=== PATIENT | male | born 1950 | race Caucasian/White ===

== ENCOUNTER 2018-12-16 09:29 | Outpatient (CLI) | payer MEDICARE ==
[2018-12-16 11:04] LABS: Estimated GFR-MDRD - POC Greater than 90
--- NOTE | 2018-12-16 15:53 | CT ---
CONTRAST ENHANCED CT IMAGES SOFT TISSUE NECK: HISTORY: Anterior neck swelling. FINDINGS: Contrast-enhanced CT images of the soft tissue neck obtained. Comparison is made to a previous CT of the cervical spine from 02/02/2017. CT images soft tissue neck demonstrate a hypodense mass just to the right of midline seen on axial im age #76. Three-dimensional measures measure 2.2 x 4.5 x 3.2 cm. This lesion appears to be hypodense . It is posterior to the strap muscles. It extends superiorly to the inferior margin of the vallecu la. This lesion may represent a thyroglossal duct cyst. The lesion is posterior to the strap muscle s and anterior to the thyroid cartilage and inferior to the hyoid bone. Cystic malignancy including squamous cell carcinoma, however, cannot be excluded originating from the vallecula. No significant evidence of lymphadenopathy is seen. There is an enlarged lymph node in the left superficial posteri or aspect of the parotid gland measuring 7 mm in minimum dimension. IMPRESSION: Midline intrahyoid hypodense lesion possibly representing a thyroglossal duct cyst. Other cystic yasmine plastic process, however, cannot be excluded. Coronary artery calcifications seen. Some prominent s uperficial left parotid lymph nodes seen. In addition, left carotid bulb vascular calcifications are also seen. POS: JEN
== END 2018-12-16 09:30 | disposition home or self-care (01) ==
LOC: SCSCT 09:29
PROVIDERS: ATTEND Specialist
DX: R22.1 Localized swelling, mass and lump, neck (principal); I25.10 Atherosclerotic heart disease of native coronary artery without angina pectoris; I65.22 Occlusion and stenosis of left carotid artery
CPT/HCPCS: 70492; 82565

== ENCOUNTER 2019-01-20 10:12 | Day surgery (SDC) | payer MEDICARE ==
[2019-01-19 11:26] VITALS: BMI 33.9
[2019-01-20 11:11] LABS: Hemoglobin 9.6 g/dL (14.0-18.0)
[2019-01-20 11:33] LABS: Anion Gap 14 mmol/L (10-20); BUN (Urea Nitrogen) 11 mg/dL (8.4-25.7); Calc. Creatinine Clearance 116 mL/min (70-130); Calcium 9.3 mg/dL (7.8-10.44); Carbon Dioxide 20 mmol/L (23-31); Chloride 105 mmol/L (98-107); Estimated GFR-MDRD 75; Glucose 325 mg/dL (80-115); Platelet Count 115 thou/uL (130-400); Potassium 4.4 mmol/L (3.5-5.1); Sodium 135 mmol/L (136-145)
[2019-01-20] MEDS ORDERED: Insulin Regular 300 UNITS/3 ML VIAL ONE (11:49)
[2019-01-20] MEDS ORDERED: Fentanyl 100 MCG/2 ML VIAL ONE ×2 (12:05→15:08)
[2019-01-20] MEDS ORDERED: Midazolam HCl 2 mg/2 ml Vial ONE (12:05)
[2019-01-20] MEDS ORDERED: Lidocaine 1% w/Epinephrine 1:100K 20 ML VIAL ONE (12:06)
[2019-01-20] MEDS ORDERED: Ondansetron PF 4 MG/2 ML Vial ONE (14:27)
[2019-01-20] MEDS ORDERED: Lidocaine 1% PF 5 ML VIAL ONE (14:27)
[2019-01-20] MEDS ORDERED: PROPOFOL 200 MG/20 ML VIAL ONE (14:27)
[2019-01-20] MEDS ORDERED: Glycopyrrolate 0.2 MG/ML 5 ML SYRINGE ONE (14:27)
[2019-01-20] MEDS ORDERED: Dexamethasone 20 MG/5 ML VIAL ONE (14:27)
[2019-01-20] MEDS ORDERED: PHENYLEPHRINE-NS 100 MCG/ML 10 ML SYRINGE ONE (14:27)
[2019-01-20] MEDS ORDERED: ePHEDrine 50 MG/ML VIAL ONE (14:27)
[2019-01-20] MEDS ORDERED: Rocuronium Bromide 10 MG/ML (10ML VIAL) ONE (14:27)
--- NOTE | 2019-01-20 14:27 | OP ---
DATE OF PROCEDURE: 01/20/2019 PREOPERATIVE DIAGNOSIS: Large thyroglossal duct cyst. POSTOPERATIVE DIAGNOSIS: Large thyroglossal duct cyst. PROCEDURES PERFORMED: 1. Excision of large thyroglossal duct cyst. 2. Direct laryngoscopy. 3. Lamont procedure. DESCRIPTION OF PROCEDURE: After consent was obtained, the patient was identified and brought to operating room and placed on operating table in supine position. General endotracheal anesthesia was obtained and the patient was positioned for surgery. The patient underwent systematic laryngeal examination and no foreign bodies were identified at the cecum or the tongue base area. We then proceeded with prepping and draping the patient and positioning for surgery. An incision was made over the cyst in the natural skin crease and carried down through the skin and subcutaneous tissues until the strap muscles. Ultimately, the cyst was encountered and dissected from the surrounding tissues. The hyoid bone was skeletonized and transected in the medial portion. This was then dissected through the midportion of the hyoid bone back to the base of tongue area. This was then suture ligated with a 3-0 silk suture. The marsupialized end of the cyst was then cauterized with the bipolar cautery. We then put Fibrillar Surgicel in the deep aspect of the wound, closed the wounds with the strap muscles being reapproximated followed by the platysma and subcutaneous tissues. We then did a subcuticular suture and put a sterile dressing, awakened the patient, taken to the recovery room in stable condition prior to discharge to home. Job ID: [id number]
[2019-01-20] MEDS ORDERED: Promethazine HCl 25 MG/ML VIAL IM/IV PRN (15:05)
[2019-01-20] MEDS ORDERED: Ondansetron HCl/PF 4 MG/2 ML Vial IVP PRN (15:05)
[2019-01-20] MEDS ORDERED: Hydrocodone-Acetamin 15 ML UDCUP ONE (16:00)
--- NOTE | 2019-01-21 07:05 | EKG ---
Test Reason : PREOP Blood Pressure : / mmHG Vent. Rate : 100 BPM Atrial Rate : 100 BPM P-R Int : 138 ms QRS Dur : 098 ms QT Int : 364 ms P-R-T Axes : 048 -27 071 degrees QTc Int : 469 ms Normal sinus rhythm Normal ECG When compared with ECG of 12-DEC-2016 18:04, No significant change was found Confirmed by NARDA ADAIR ([id number]) on 01/21/2019 7:05:38 AM Referred By: SERINA Confirmed By:NARDA ADAIR
== END 2019-01-20 16:42 | disposition home or self-care (01) ==
LOC: SDC 10:12
PROVIDERS: ATTEND Specialist
PROC: 0WB60ZX Excision of Neck, Open Approach, Diagnostic (ICD-10-PCS; principal; 2019-01-20)
DX: Q89.2 Congenital malformations of other endocrine glands (principal); E11.40 Type 2 diabetes mellitus with diabetic neuropathy, unspecified; I10 Essential (primary) hypertension; Z86.73 Personal history of transient ischemic attack (TIA), and cerebral infarction without residual deficits; Z21 Asymptomatic human immunodeficiency virus [HIV] infection status; Z79.1 Long term (current) use of non-steroidal anti-inflammatories (NSAID); Z79.4 Long term (current) use of insulin; Z79.82 Long term (current) use of aspirin; Z79.899 Other long term (current) drug therapy; Z88.8 Allergy status to other drugs, medicaments and biological substances
CPT/HCPCS: 36415; 36416; 80048; 85014; 85018; 85049; 88305; 93005; 93010; J1100; J1815; J2001; J2250; J2405; J2704; J3010; J3490

== ENCOUNTER 2019-03-22 08:58 | Day surgery (SDC) | payer MEDICARE ==
[2019-03-21 14:17] VITALS: BMI 34.2
[2019-03-22] MEDS ORDERED: GoLYTELY 4,000 ml Bottle PO SCH (09:45)
[2019-03-22] MEDS ORDERED: Lidocaine 1% PF 5 ML VIAL ONE (13:50)
[2019-03-22] MEDS ORDERED: PROPOFOL 200 MG/20 ML VIAL ONE (13:50)
[2019-03-22] MEDS ORDERED: PHENYLEPHRINE-NS 100 MCG/ML 10 ML SYRINGE ONE (13:50)
[2019-03-22] MEDS ORDERED: Lidocaine Viscous Sol 2% 15 ml UD Cup ONE (13:58)
--- NOTE | 2019-03-22 20:55 | OP ---
DATE OF PROCEDURE: 03/22/2019 PROCEDURE PERFORMED: Esophagogastroduodenoscopy with biopsy and colonoscopy with snare polypectomy. PREOPERATIVE DIAGNOSES: Iron deficiency anemia and cirrhosis of the liver. DESCRIPTION OF PROCEDURE: Informed consent was obtained from the patient. He was sedated with total intravenous anesthesia. The bite block was placed and the endoscope was advanced easily to the second portion of the duodenum and retroflexion was performed in the stomach. The esophagus was normal. The GE junction was normal. The stomach was normal including retroflex views. The pylorus and first and second portions of the duodenum were normal. Biopsies were obtained from the duodenum to rule out celiac disease. The patient was turned around. Rectal exam was performed and was normal. The colonoscope was advanced to the terminal ileum without difficulty. The mucosa of the terminal ileum was normal. The ileocecal valve and appendiceal orifice were clearly identified. There was mild diverticulosis in the left colon. A 5-mm polyp was removed from the descending colon by cold snare polypectomy. The remainder of the colonic mucosa was normal throughout. Retroflex views in the rectum were unremarkable unremarkable. IMPRESSION: 1. Normal esophagogastroduodenoscopy. There were no varices. Duodenal biopsies were taken to rule out celiac disease as a cause for iron deficiency anemia. 2. Mild diverticulosis of the left colon. 3. A 5-mm polyp was removed from the descending colon with cold snare polypectomy. 4. Otherwise normal colonoscopy to the terminal ileum. RECOMMENDATIONS: 1. Await histopathology. 2. Follow up in GI clinic. 3. Consider capsule endoscopy as an outpatient as a next step. Job ID: [id number]
== END 2019-03-22 15:45 | disposition home or self-care (01) ==
LOC: SDC 08:58
PROVIDERS: ATTEND Internal Medicine Gastroenterology
PROC: 0DB58ZX Excision of Esophagus, Via Natural or Artificial Opening Endoscopic, Diagnostic (ICD-10-PCS; principal; 2019-03-22)
PROC: 0DBE8ZZ Excision of Large Intestine, Via Natural or Artificial Opening Endoscopic (ICD-10-PCS; 2019-03-22)
DX: K63.5 Polyp of colon (principal); K57.30 Diverticulosis of large intestine without perforation or abscess without bleeding; D50.9 Iron deficiency anemia, unspecified; K74.60 Unspecified cirrhosis of liver; K72.90 Hepatic failure, unspecified without coma; I10 Essential (primary) hypertension; E11.9 Type 2 diabetes mellitus without complications; B20 Human immunodeficiency virus [HIV] disease; Z88.8 Allergy status to other drugs, medicaments and biological substances
CPT/HCPCS: 36416; 88305; J2001; J2704

== ENCOUNTER 2019-09-23 08:37 | Outpatient (CLI) | payer MEDICARE ==
--- NOTE | 2019-09-23 09:34 | ULT ---
EXAM: US Hepatic Doppler PROVIDED CLINICAL HISTORY: Cirrhosis. History of prior cholecystectomy. COMPARISON: None FINDINGS: The majority of pancreas is obscured by bowel gas; however, where visualized, pancreas has a grossly normal sonographic appearance. Abdominal aorta is also mostly obscured due to shadowing from bowel gas. The mid abdominal aorta is visualized and normal in caliber. There is increased echogenicity of the liver suggesting fatty infiltration. The liver is enlarged joselito suring 21.3 cm in craniocaudal dimensions. No obvious hepatic lesion is seen. The gallbladder is not visualized compatible with patient's history of prior cholecystectomy. The com mon duct is normal in caliber measuring 0.3 cm in diameter. The spleen is enlarged measuring 17 cm in length. Hepatic Doppler evaluation with spectral analysis and color flow evaluation: There is normal directional flow seen within the hepatic, portal, and splenic veins. Arterial wavefor ms are demonstrated within the splenic and hepatic arteries. IMPRESSION: 1. Hepatosplenomegaly. 2. Fatty infiltration of the liver which does limit evaluation of the hepatic parenchyma. However, no definite lesion is seen. 3. Postcholecystectomy changes. The common duct is normal in caliber. 4. Normal directional flow with thin the splenic, hepatic, and portal veins.
== END 2019-09-23 08:38 | disposition home or self-care (01) ==
LOC: SCSULT 08:37
PROVIDERS: ATTEND Internal Medicine Gastroenterology
DX: K74.60 Unspecified cirrhosis of liver (principal); D50.9 Iron deficiency anemia, unspecified; K72.90 Hepatic failure, unspecified without coma; E11.9 Type 2 diabetes mellitus without complications; B20 Human immunodeficiency virus [HIV] disease; R16.2 Hepatomegaly with splenomegaly, not elsewhere classified; K76.0 Fatty (change of) liver, not elsewhere classified; Z90.49 Acquired absence of other specified parts of digestive tract
CPT/HCPCS: 76705

== ENCOUNTER 2019-09-29 16:41 | Outpatient (CLI) | payer MEDICARE ==
--- NOTE | 2019-09-29 17:11 | RAD ---
ABDOMEN ONE VIEW: 09/29/19 HISTORY: Capsule endoscopy. FINDINGS: Large amount of stool throughout the colon. Phleboliths project over the pelvis. Metallic clips over the gallbladder fossa. No metallic foreign bodies are otherwise demonstrated. Degenerative changes of the hips and lumbar spine. IMPRESSION: Metallic camera not visible within the abdomen. Constipation. Status post cholecystectomy. POS: TPC
== END 2019-09-29 16:42 | disposition home or self-care (01) ==
LOC: SCSRAD 16:41
PROVIDERS: ATTEND Internal Medicine Gastroenterology
DX: D64.9 Anemia, unspecified (principal); K59.00 Constipation, unspecified; Z90.49 Acquired absence of other specified parts of digestive tract
CPT/HCPCS: 74018

== ENCOUNTER 2019-10-13 19:24 | Inpatient (IN) | payer MEDICARE ==
[2019-10-13 20:58] LABS: Troponin I 1.276 ng/mL (< 0.028)
[2019-10-13] MEDS ORDERED: Enoxaparin Sodium 60 MG/0.6 ML SYRINGE ONE (21:23)
[2019-10-13 22:08] LABS: INR-International Normal Ratio 1.1; PTT 29.8 SEC (22.9-36.1); Prothrombin Time 13.9 SEC (12.0-14.7)
--- NOTE | 2019-10-13 22:13 | PDOC.FPRHP ---
- History of Present Illness Chief Complaint: CP History of Present Illness: 69yo CM with h/o CAD, DMII, LOUIS, HIV who presents for CP and SOB. Pt states he has had about 3 days of UE and LE edema. Then noticed yesterday he had increased SOB having to use his walker to get around. Then noticed new onset substernal chest pain described as a pressure and radiation down his L arm. He has not been able to lie down all night. Could not move more than 5 feet without gasping for air. Associated diaphoresis and flushing. Does endorse some dizziness/lightheadedness. CP has since resolved and SOB and edema improved with lasix given in ED. Pt reports being chronically anemic. Has been seeing Dr. Real Welsh with GI. Reports doing upper and lower endoscopy and recently capsule endoscopy. has not found anything Etl Architect- Dr. Osbonr ED Course: Given ASA. Th lovenox. - Allergies/Adverse Reactions Allergies Allergy/AdvReac Type Severity Reaction Status Date / Time nitroglycerin Allergy has Verified 03/21/19 14:13 opposite affect - Home Medications Medication Instructions Recorded Confirmed Type Meloxicam [Mobic] 15 mg PO HS 06/03/16 10/14/19 History Omeprazole 20 mg PO DAILY 06/03/16 10/14/19 History hydrOXYzine Pamoate [Vistaril] 40 mg PO HS 06/03/16 10/14/19 History metFORMIN [Glucophage] 500 mg PO BID- 06/03/16 10/14/19 History Aspirin [Ecotrin] 81 mg PO DAILY 01/19/19 10/14/19 History Darunavir Ethanolate [Prezista] 1 tab PO DAILY 01/19/19 10/14/19 History Gabapentin 1 tab PO BID 01/19/19 10/14/19 History HumaLOG 50 unit SC BID 01/19/19 10/14/19 History Icosapent Ethyl [Vascepa] 2 tab PO DAILY 01/19/19 10/14/19 History Insulin Glargine [Lantus Vial] 70 units SC BID 01/19/19 10/14/19 History Lactulose 10 gm PO TID 01/19/19 10/14/19 History Raltegravir Potassium [Isentress] 400 mg PO BID 01/19/19 10/14/19 History Rifaximin [Xifaxan] 550 mg PO BID 01/19/19 03/21/19 History Ritonavir 100 mg PO DAILY 01/19/19 10/14/19 History Comments: 70 lantus morning and night Generlac 10g/15ml (20mg after meals) Vascepa 1 gm BID Gabapentin 600mg BID Omeprazole 20 mg once daily Amitriptyline 100mg in am 150 mg in pm Metformin 500mg BID Atorvastatin 40 mg daily Ritonavir 100 mg once a day Isentress 400 mg BID Escitalopram 20 mg a day ASA 81 mg daily Alprazolam .5mg daily Prezista 800 mg daily Hydroxyzine Pamoate 40 mg a day Meloxicam 15 mg at night Humalog Lantus - History PMHx: Chronic Anemia, Heart Cath (2018) had one vessel completely occluded (no stents), DMII on insulin, HTN, HLD, Cirrhosis 2/2 fatty liver, HIV PSHx: Heart Cath (2018), Prostatectomy for Prostate Cancer, Cholecystectomy, Tonsilectomy, Hemorrhoidectomy FHx: Heart Dz, Dad- Pancreatic, Prostate Cancer Social: social drinker. no tob or illicits. Lives alone in [place]. - Review of Systems General: reports: weight/appetite/sleep changes (unable to sleep last night), fatigue. denies: fever/chills, night sweats Eyes: reports: vision changes (reports blurry vision). denies: eye pain ENT: denies: nasal congestion, rhinorrhea Respiratory: reports: cough, shortness of breath, exercise intolerance. denies : congestion Cardiovascular: reports: chest pain, edema (in arms and legs a few days ago), paroxysmal nocturnal dyspnea, orthopnea. denies: palpitation Gastrointestinal: reports: constipation (chronic problem). denies: vomiting, diarrhea, abdominal pain, GI bleeding Genitourinary: reports: other (reports orange colored urine). denies: incontinence, dysuria, polyuria Skin: denies: rashes, lesions, jaundice Musculoskeletal: denies: pain, tenderness, stiffness, swelling Neurological: denies: numbness, weakness Psychological: denies: anxiety, depression - Vital signs BP: [170/80] HR: [102] RR: [18] Tmax: [98.1] Pox: [100]% on [3L] Wt: [124 kg] - Physical Exam Constitutional: NAD, awake, alert and oriented, well developed HEENT: normocephalic and atraumatic, EOMI, conjunctiva clear, grossly normal vision, grossly normal hearing, MMM, oropharynx clear Neck: supple, trachea midline, no LAD, no JVD Chest: no-tender to palpation Heart: RRR, normal S1/S2, no murmurs/rubs/gallops, pulses present, other (1+ pitting edema to BL LE to below shins.. Swelling of BL UE of hands.) Lungs: CTAB, no respiratory distress, no rales/rhonchi, no wheezing, other ( decreased airmovement throughout) Abdomen: soft, non-tender, bowel sounds present Musculoskeletal: normal structure, normal tone Neurological: no focal deficit Skin: no rash/lesions Psychiatric: normal mood and affect, good judgment and insight, intact recent and remote memory FMR H&P: Results - Labs Result Diagrams: 10/14/19 02:10 10/14/19 02:10 - Radiology Interpretation Chest x-ray Status: image reviewed by me, report reviewed by me (Findings favor fluid overload related to CHF. Correlate clnically.) FMR H&P: A/P - Problem List (1) NSTEMI (non-ST elevated myocardial infarction) Current Visit: Yes Status: Acute Code(s): I21.4 - NON-ST ELEVATION (NSTEMI) MYOCARDIAL INFARCTION (2) Acute respiratory failure with hypoxia Current Visit: Yes Status: Acute Code(s): J96.01 - ACUTE RESPIRATORY FAILURE WITH HYPOXIA (3) CAD (coronary artery disease) Current Visit: Yes Status: Chronic Code(s): I25.10 - ATHSCL HEART DISEASE OF PILOT STATION CORONARY ARTERY W/O ANG PCTRS (4) HIV (human immunodeficiency virus infection) Current Visit: No Status: Chronic (5) T2DM (type 2 diabetes mellitus) Current Visit: No Status: Chronic - Plan 69yo CM with h/o CAD, anemia, HTD, LOUIS, HIV with undetectable viral load who presents with CP found to have NSTEMI. #NSTEMI, possibly 2/2 demand ischemia - Trop 1.2 -> 1.8 in ED - EKG with slight ST depression in lateral V4-V6 leads - CP resolved in ED - h/o CAD with cath in early 2018 with complete occlusion of 1 artery and 40% stenosis in 2 others per pt family - Th lovenox at 1mg/kg BID - known to Dr. Osborn - Consult Cards in AM - NPO at midnight for likely cardiac intervention - Admit to Tele for continuous monitoring, trending trops #Symptomatic Anemia - Hb 7.5 on admission, lowest in records reviewed - Denies any acute blood loss - Known to Dr. Welsh, recent upper, lower, and capsule endoscopy - clear per pt - sxs of dizziness/lightheadedness and NSTEMI - Type and cross and transfuse 1u pRBC followed by 40mg IV lasix - Repeat HB in AM, will cont to monitor on tele - will obtain FOBT #Acute Hypoxic respiratory failure 2/2 NSTEMI and likely CHF exacerbation - O2 sat of 88 on presentation to ED, improved with diuresis with IV lasix - Satting well on RA now, will cont to monitor closely #CHF exacerbation - newonset possibly contributing to NSTEMI - Will order Echo in AM - Lasix 80mg IV in ED x2, will monitor with strict I's and O's and daily weights - Cards consult in AM - CXR with mild pulmonary congestion #DMII - Will place on SS insulin as pt using long-acting Lantus prn at home and currently NPO - Hyperglycemic protocol with KENN tello #HIV - undetectable viral load per pt - cont home medications - follows with Dr. Estrada PCP: Gaurav Code: modified DNR - chest compression only, no intubation - spoke with pt and sister at beside Diet: NPO at midnight IVF: SL VTE: Th lovenox Disposition/LOS: Admit to tele for NSTEMI, suspected acute CHF exacerbation, acute symptomatic anemia. Cards consult in AM. Trend trops. Diuresis and echo in AM. Anticipate hospitalization > 48 hours. FMR H&P: Upper Level - Pertinent history I was present with Dr. Sri Bill during the HPI. I scribed the above document. I made edits as needed. - Pertinent findings General: Pt sitting up in Bed. O2 sats stable on 3 L O2 Cardio: RRR, no murmurs or gallops. Resp: Bilateral crackles noted, No wheezes Abdomen: Mildly distended. No masses or hernias. NTTP Ext: +3 Pitting edema up to his knees in LE bilaterally - Plan Date/Time: 11/14/19 2210 I, Abdiel Palomares, PGY-3, have evaluated this patient and agree with findings/ plan as outlined by music industry intern resident. Pertinent changes/additions are listed here. See above for detailed plan. I made edits above as needed. At this time we will admit pt for NSTEMI. Pt started on therapeutic lovenox. No longer having chest pain. Will continue to trend trops. Will consult cardiology in the AM. Pt also appears to have signs of new onset CHF. Will get ECHO. Will start IV Lasix 40 mg. CXR shows signs of fluid overload. Likely cause of SOB. Pt also has acute hypoxic resp failure 2/2 fluid overload. Will continue to tx with lasix. Pt has history of chronic anemia. Pt hgb 7.5 this is lower from prior values. Baseline around 8-9. Possible Blood loss leading to some demand ischemia above. Will get FOBT. Will trend CBC. Will transfuse 1u PRBC at this time. Pt has been seeing GI- Dr. Welsh and is currently being worked up for this. Pt has HIV. Will continue home meds. Pt has insulin dependent DMII. Pt reports home lantus dose 70u. Pt glucose stable at this time. Will hold lantus for now and trend glucose as he is NPO. Placed on Mod SSI. See above for detailed plan. Addendum - Attending - Attending Attestation Date/Time: 10/13/19 9731 I personally evaluated the patient and discussed the management with Dr. Bill/ Marielle I agree with the History, Examination, Assessment and Plan documented above with any addition or exceptions noted below. 69 yo WM PMH HTN, known CAD with 40-50% occlusion per family, DM2, and HIV ( well controlled) presents with 1-2 wk hx of worsening SOB that acutely worsened this morning. Reports difficulty lying flat. Seen at [facility] ER. Found to have NSTEMI and HF exacerbation. Unknown if has hx of HF at this time. Exam unremarkable. Resting comfortably in room. patient states supplemental oxygen has helped symptoms. Trop 0.5->1.2. BNP 300. CXR fluid overload. initial EKG unremarkable with borderline QTc prolongation. Repeat EKG unchanged. States only has CP with deep inspiration. Will admit to inpatient telemetry for NSTEMI type 1 and likely new onset heart failure. s/p lasix and therapeutic lovenox. Type, crossmatch, and transfuse 1 unit for goal hemoglobin of 9. Will consult cardiology in the morning for likely cath. PRN nitro for CP. Repeat EKG if chest pain worsens. See music industry intern note for chronic problems.
[2019-10-13] MEDS ORDERED: Ondansetron ODT 4 MG TAB SL PRN (23:12)
[2019-10-13] MEDS ORDERED: Ondansetron PF 4 MG/2 ML Vial IVP PRN (23:12)
[2019-10-13] MEDS ORDERED: Acetaminophen 325 MG TAB PO PRN (23:12)
[2019-10-14] MEDS ORDERED: Ondansetron ODT 4 MG TAB PO PRN (00:23)
[2019-10-14] MEDS ORDERED: Acetaminophen 325 MG TAB PO PRN (00:23)
[2019-10-14] MEDS ORDERED: Dextrose 5% in Water 1,000 ML IV PRN (00:23)
[2019-10-14] MEDS ORDERED: Dextrose 50% Abboject 50 ML SYRINGE SLOW IVP PRN (00:23)
[2019-10-14] MEDS ORDERED: Ondansetron PF 4 MG/2 ML Vial IVP PRN (00:23)
[2019-10-14] MEDS ORDERED: Calcium Carbonate 500 MG ChewTAB PO PRN (00:23)
[2019-10-14] MEDS ORDERED: HumaLOG 300 UNITS/3 ML VIAL SC PRN (00:23)
[2019-10-14] MEDS ORDERED: Furosemide 40 MG/4 ML VIAL SLOW IVP SCH (00:30)
[2019-10-14 00:49] LABS: Troponin I 1.845 ng/mL (< 0.028)
[2019-10-14 02:42] LABS: Band 1 % (5-11); Eosinophils 1 % (0-10); Hemoglobin 7.5 g/dL (14.0-18.0); Lymphocytes 18 % (21-51); MDiff Complete? YES; Mean Corpuscular Hemoglobin 19.2 pg (27.0-31.0); Mean Corpuscular Volume 63.9 fL (78.0-98.0); Mean Platelet Volume 5.5 fL (7.4-10.4); Monocytes 2 % (0-10); Neutrophil 78 % (42-75); Platelet Count 117 thou/uL (130-400); Platelet Morphology Comment Appears Decreased; RBC Distribution Width 20.1 % (11.5-14.5); White Blood Cell (WBC) Count 7.9 thou/uL (4.8-10.8)
[2019-10-14 02:48] LABS: ALT (SGPT) 28 U/L (8-55); AST (SGOT) 31 U/L (5-34); Albumin 3.9 g/dL (3.4-4.8); Alkaline Phosphatase 111 U/L (40-110); Anion Gap 12 mmol/L (10-20); BUN (Urea Nitrogen) 29 mg/dL (8.4-25.7); Bilirubin, Total 0.5 mg/dL (0.2-1.2); Calc. Creatinine Clearance 101 mL/min (70-130); Calcium 8.8 mg/dL (7.8-10.44); Carbon Dioxide 26 mmol/L (23-31); Chloride 104 mmol/L (98-107); Estimated GFR-MDRD 59; Globulin 3.4 g/dL (2.4-3.5); Glucose 134 mg/dL (80-115); Potassium 3.6 mmol/L (3.5-5.1); Protein, Total 7.3 g/dL (5.8-8.1); Sodium 138 mmol/L (136-145)
--- NOTE | 2019-10-14 05:14 | PDOC.FM ---
- Subjective Subjective: Pt reports that his breathing is much improved. He denies chest pain currently. In addition, he denies nausea, vomiting, diaphoresis, or SOB. He states the O2 has greatly improved his breathing. - Objective MAR Reviewed: Yes Vital Signs & Weight: Vital Signs (12 hours) Temp Pulse Pulse Resp BP BP Pulse Ox 10/14/19 03:17 98.8 F 92 24 H 135/68 95 10/13/19 23:00 98.9 F 80 24 H 170/80 H 97 Weight Weight 124.194 kg I&O: 10/12/19 10/13/19 10/14/19 06:59 06:59 06:59 Intake Total 0 Balance 0 Result Diagrams: 10/14/19 09:16 10/14/19 09:16 Phys Exam - Physical Examination Constitutional: NAD dry mm Neck: no JVD Respiratory: no wheezing Crackles in bilateral bases and mid lung Cardiovascular: RRR, no significant murmur Gastrointestinal: soft, non-tender, no distention, positive bowel sounds Musculoskeletal: pulses present, edema present (1+ pitting edema to knee bilaterally) Neurological: moves all 4 limbs Psychiatric: A&O x 3 Skin: cap refill <2 seconds Dx/Plan (1) LUPILLO (acute kidney injury) Code(s): N17.9 - ACUTE KIDNEY FAILURE, UNSPECIFIED Status: Acute (2) HIV (human immunodeficiency virus infection) Status: Chronic (3) HTN (hypertension) Code(s): I10 - ESSENTIAL (PRIMARY) HYPERTENSION Status: Acute (4) T2DM (type 2 diabetes mellitus) Status: Chronic - Plan Plan: This is a 69 yo male with a pmh of Chronic anemia, IDDM2, HTN, CAD, HLD, Cirrhosis 2/2 fatty liver, HIV Acute hypoxic respiratory failure likely 2/2 new CHF exacerbation -S/P lasix 80mg in outside hospital -BNP 367 -Undergoing diuresis with lasix. Strict I&Os and daily weights -Plan for AM echo -Plan for cardiology consult given apparent new onset CHF -Pt will likely need beta carissa and ACEi before discharge NSTEMI type 1 -May be contributing to the new CHF -S/P therapeutic lovenox and aspirin -ST depressions in lateral leads -Plan for cardiology consult in the AM -Troponins trending up:0.502, 1.276, 1.845 -Will continue monitoring for pain and repeat EKG with any changes -Dr. Osborn is pt's telecom specialist LUPILLO on CKD 2 likely 2/2 new CHF exacerbation -Diuresis and follow with BMPs Symptomatic anemia -Transfusion threshold is <8.0 due to cardiac condition -S/P 1u PRBCs, will reassess after -Will monitor respirations closely for fluid overload, pt given 40mg lasix before transfusion Chronic anemia -Pt is undergoing workup with Dr. Welsh. No source at this point -MCV would suggest iron deficiency, however RDW is elevated suggesting multifocal anemia or large reticulocyte population IDDM2 -Continue home HTN -Monitor BP, no meds on home list HIV -Pt reports undetectable viral load, pending viral load and CD4 count -Continue home raltegravir and ritonavir CAD -Continue aspirin, starting atorvastatin Cirrhosis 2/2 fatty liver -Check on hep A and B vaccine Addendum - Attending - Attending Attestation Date/Time: 10/14/19 1043 I personally evaluated the patient and discussed the management with Dr. Babin. I agree with the History, Examination, Assessment and Plan documented above with any addition or exceptions noted below.
[2019-10-14 05:54] LABS: Critical Call Chem Troponin I RESULT DECREASING
[2019-10-14 06:11] LABS: Hemoglobin A1c 7.2 % (4.0-6.0)
[2019-10-14] MEDS ORDERED: Non-Formulary Item 1 EACH (Omeprazole [Omeprazole] 20 MG) PO SCH (09:00)
[2019-10-14] MEDS ORDERED: DARUNAVIR ETHANOLATE PO SCH (09:00)
[2019-10-14] MEDS ORDERED: Aspirin Chewable 81 MG TAB PO SCH (09:00)
[2019-10-14] MEDS ORDERED: Enoxaparin Sodium 40 MG/0.4 ML SYRINGE SC SCH (09:00)
[2019-10-14] MEDS ORDERED: Prevnar 13-Val Conj/PF 0.5 ML SYRINGE IM ONE (09:00)
[2019-10-14 09:31] LABS: Platelet Count 96 thou/uL (130-400)
[2019-10-14] MEDS ORDERED: Spironolactone 25 MG TAB PO SCH ×2 (10:01→10:15)
[2019-10-14] MEDS: Gabapentin 300 MG CAP PO SCH ×3 (11:37→20:51)
[2019-10-14] MEDS: Aspirin 81 mg Enteric Coated Tablet PO SCH (11:37)
[2019-10-14] MEDS: Escitalopram Oxalate 20 mg Tablet PO SCH (11:37)
[2019-10-14] MEDS: metFORMIN 500 MG TAB PO SCH ×2 (11:38→17:39)
[2019-10-14] MEDS: hydrOXYzine Pamoate 25 mg Capsule PO SCH (11:39)
[2019-10-14] MEDS: Raltegravir Potassium 400 MG TAB PO SCH ×2 (11:40→20:52)
--- NOTE | 2019-10-14 12:20 | CON ---
DATE OF CONSULTATION: HISTORY OF PRESENT ILLNESS: The patient is a very pleasant 69-year-old gentleman with a history of coronary artery disease, who presented with dyspnea and chest discomfort. The patient has a previous history of coronary artery disease. In December 2018, the patient underwent a left heart catheterization. He was found to have normal left ventricular systolic function, estimated ejection fraction of 55% to 60%. The LAD had a 50% mid stenosis. There was a distal 40% stenosis in the LAD. The left circumflex artery had a 40% ostial stenosis. Right coronary artery had 100% proximal occlusion. The patient has subsequently been on medical therapy. He has also had a great difficulty with GI hemorrhage. He has been undergoing an evaluation. The patient was in his usual state of health when he noted having increasing edema. He subsequently became progressively short of breath. He reported having chest discomfort associated with his breathing. The patient denies having any present chest discomfort. PAST MEDICAL HISTORY: 1. Coronary artery disease. 2. Diabetes mellitus. 3. HIV positive. 4. Prostate carcinoma. 5. Hypertension. 6. Dyslipidemia. 7. Obesity. PAST SURGICAL HISTORY: 1. Cholecystectomy. 2. Prostatectomy. SOCIAL HISTORY: Former smoker. ALLERGIES: NO KNOWN DRUG ALLERGIES. MEDICATIONS: See nursing list. FAMILY HISTORY: Positive family history of coronary artery disease. REVIEW OF SYSTEMS: Ten-point system otherwise unremarkable. PHYSICAL EXAMINATION: GENERAL: This is an obese gentleman, in no acute distress. VITAL SIGNS: Blood pressure of 143/75. NECK: No jugular venous distention. LUNGS: Crackles in both bases. HEART: Regular rate and rhythm. Normal S1 and S2. ABDOMEN: Moderately distended. EXTREMITIES: 2+ bilateral edema. VASCULAR: Radial pulses 2+. LABORATORY DATA: White blood cell count was 7.9, hemoglobin 7.5, hematocrit 24.9, and his platelets are 117. Sodium 138, potassium 3.6, chloride 104, bicarb 26, BUN 29, creatinine 1.2. Troponin 1.1. His EKG reveals normal sinus rhythm with ST abnormality suggestive of lateral ischemia. IMPRESSION AND PLAN: 1. Non Q-wave myocardial infarction. 2. 3-vessel coronary artery disease. 3. History of GI hemorrhage. 4. Severe anemia. 5. Congestive heart failure probably secondary to diastolic dysfunction. 6. Diabetes mellitus. 7. Obesity. This patient presents with a small non-Q-wave myocardial infarction, probably due to demand ischemia and congestive heart failure. From a cardiac standpoint , we would treat the patient medically. We would recommend starting the patient on diuretics. We will follow this patient with you through his hospitalization. Job ID: [id number] MTDD
[2019-10-14 14:22] VITALS: BMI 37.9
[2019-10-14] MEDS: Furosemide 40 MG/4 ML VIAL SLOW IVP SCH (14:58)
[2019-10-15 05:12] LABS: Band 1 % (5-11); Eosinophils 1 % (0-10); Hemoglobin 7.9 g/dL (14.0-18.0); Hypochromia SLIGHT = 6-15 cells (100X) (0-5/hpf); Lymphocytes 12 % (21-51); MDiff Complete? YES; Mean Corpuscular HGB CONC 30.2 g/dL (32.0-36.0); Mean Corpuscular Hemoglobin 19.9 pg (27.0-31.0); Mean Platelet Volume 5.5 fL (7.4-10.4); Monocytes 2 % (0-10); Neutrophil 84 % (42-75); Platelet Count 107 thou/uL (130-400); Platelet Morphology Comment Appears Decreased; Polychromasia SLIGHT = 2-3 cells (100X) (0-2/hpf); RBC Distribution Width 21.4 % (11.5-14.5); Red Blood Cell (RBC) Count 3.95 mill/uL (4.70-6.10); White Blood Cell (WBC) Count 5.6 thou/uL (4.8-10.8)
[2019-10-15 05:18] LABS: ALT (SGPT) 28 U/L (8-55); AST (SGOT) 29 U/L (5-34); Albumin 3.7 g/dL (3.4-4.8); Alkaline Phosphatase 107 U/L (40-110); Anion Gap 9 mmol/L (10-20); BUN (Urea Nitrogen) 21 mg/dL (8.4-25.7); Bilirubin, Total 0.6 mg/dL (0.2-1.2); Calc. Creatinine Clearance 121 mL/min (70-130); Calcium 8.7 mg/dL (7.8-10.44); Carbon Dioxide 27 mmol/L (23-31); Chloride 104 mmol/L (98-107); Estimated GFR-MDRD 73; Globulin 3.4 g/dL (2.4-3.5); Glucose 124 mg/dL (80-115); Potassium 3.9 mmol/L (3.5-5.1); Protein, Total 7.1 g/dL (5.8-8.1); Sodium 136 mmol/L (136-145)
[2019-10-15] MEDS: Furosemide 40 MG/4 ML VIAL SLOW IVP SCH ×2 (05:25→14:10)
--- NOTE | 2019-10-15 06:08 | PDOC.FM ---
- Subjective Subjective: Pt's breathing is improving. He denies chest pain this morning. He states the swelling in his hands is better. He has no complaints - Objective MAR Reviewed: Yes Vital Signs & Weight: Vital Signs (12 hours) Temp Pulse Resp BP Pulse Ox 10/15/19 04:00 98.2 F 93 23 H 126/61 92 L 10/14/19 19:47 99.2 F 98 20 133/72 98 Weight Admit Weight 124.194 kg Weight 120.021 kg I&O: 10/13/19 10/14/19 10/15/19 06:59 06:59 06:59 Intake Total 990 960 Output Total 3800 2550 Balance -2810 -1590 Result Diagrams: 10/15/19 04:33 10/15/19 04:33 Phys Exam - Physical Examination Constitutional: NAD HEENT: moist MMs Neck: no JVD Respiratory: no wheezing Crackles in bases bilaterally, improved air movement Cardiovascular: RRR 2/6 systolic murmur Gastrointestinal: soft, non-tender, no distention, positive bowel sounds Musculoskeletal: pulses present, edema present (1+ pitting to mid larsen) Neurological: moves all 4 limbs Psychiatric: A&O x 3 Skin: cap refill <2 seconds Dx/Plan (1) LUPILLO (acute kidney injury) Code(s): N17.9 - ACUTE KIDNEY FAILURE, UNSPECIFIED Status: Acute (2) HIV (human immunodeficiency virus infection) Status: Chronic (3) HTN (hypertension) Code(s): I10 - ESSENTIAL (PRIMARY) HYPERTENSION Status: Acute (4) T2DM (type 2 diabetes mellitus) Status: Chronic - Plan Plan: This is a 69 yo male with a pmh of Chronic anemia, IDDM2, HTN, CAD, HLD, Cirrhosis 2/2 fatty liver, HIV Acute hypoxic respiratory failure likely 2/2 new HFpEF exacerbation -S/P lasix 80mg in outside hospital -BNP 367 -Undergoing diuresis with lasix. Strict I&Os and daily weights, 1.5 L down overnight, 4.4 L down for hospital stay -Dr. Osborn consulted, will appreciate recommendations -Pt will likely need beta carissa and ACEi before discharge -Echo shows EF of 50-55%, LVH, and diastolic dysfunction NSTEMI type 1 -May be contributing to the new CHF -S/P therapeutic lovenox and aspirin -ST depressions in lateral leads -Plan for cardiology consult in the AM -Troponins trending up:0.502, 1.276, 1.845 -Will continue monitoring for pain and repeat EKG with any changes -Dr. Osborn recommends medical management and treatment of underlying CHF exacerbation LUPILLO on CKD 2 likely 2/2 new CHF exacerbation -Diuresis and follow with BMPs -Improving while on lasix Symptomatic anemia -Transfusion threshold is <8.0 due to cardiac condition -S/P 1u PRBCs, will reassess after -Will monitor respirations closely for fluid overload, pt given 40mg lasix before transfusion -Hgb 7.9 this AM, pt will likely Hemoconcentrate with diuresis. Will follow and transfuse if this drops more or pt becomes symptomatic Chronic anemia -Pt is undergoing workup with Dr. Welsh. No source at this point -MCV would suggest iron deficiency, however RDW is elevated suggesting multifocal anemia or large reticulocyte population IDDM2 -Continue home HTN -Monitor BP, no meds on home list HIV -Pt reports undetectable viral load, pending viral load and CD4 count -Continue home raltegravir and ritonavir CAD -Continue aspirin, starting atorvastatin Cirrhosis 2/2 fatty liver -Check on hep A and B vaccine
[2019-10-15] MEDS: Enoxaparin Sodium 40 MG/0.4 ML SYRINGE SC SCH (09:40)
[2019-10-15] MEDS: metFORMIN 500 MG TAB PO SCH ×2 (09:43→16:41)
[2019-10-15] MEDS: Spironolactone 25 MG TAB PO SCH (09:43)
[2019-10-15] MEDS: Atorvastatin Calcium 40 MG TAB PO SCH (09:44)
[2019-10-15] MEDS: ALPRAZolam 0.5 MG TAB PO SCH (09:44)
[2019-10-15] MEDS: Amitriptyline HCl 100 MG TAB PO SCH (09:44)
[2019-10-15] MEDS: Aspirin 81 mg Enteric Coated Tablet PO SCH (09:44)
[2019-10-15] MEDS: Escitalopram Oxalate 20 mg Tablet PO SCH ×2 (09:45)
[2019-10-15] MEDS: hydrOXYzine Pamoate 25 mg Capsule PO SCH (09:46)
[2019-10-15] MEDS: Gabapentin 300 MG CAP PO SCH ×3 (09:46→22:26)
[2019-10-15] MEDS: Raltegravir Potassium 400 MG TAB PO SCH ×2 (10:18→22:26)
[2019-10-15] MEDS: HumaLOG 300 UNITS/3 ML VIAL SC PRN (11:50)
--- NOTE | 2019-10-15 16:20 | PRG ---
DATE OF SERVICE: 10/15/2019 Please see the note from Dr. Babin, for which I agree. This gentleman is hospital day 2, CHF exacerbation and NSTEMI. Troponin definitely bumped up fairly high. Appreciate Cardiology's Involvement. Already had 4 L diuresed off him. Complicated history including diabetes, chronic kidney issues, HIV, hypertension, etc. Things seem fairly stable. He feels a lot better now that we diuresed him. I will continue gentle diuresis watching kidney function on this and keeping him on the monitor looking for arrhythmias after the myocardial infarct. We will continue sliding scale insulin. He has chronic anemia. I want to watch that closely. It sounds like GI has worked him up and really not found a definitive etiology. Job ID: [id number]
[2019-10-16 04:51] LABS: ALT (SGPT) 30 U/L (8-55); AST (SGOT) 29 U/L (5-34); Albumin 3.9 g/dL (3.4-4.8); Alkaline Phosphatase 115 U/L (40-110); Anion Gap 10 mmol/L (10-20); BUN (Urea Nitrogen) 22 mg/dL (8.4-25.7); Bilirubin, Total 0.5 mg/dL (0.2-1.2); Calc. Creatinine Clearance 104 mL/min (70-130); Calcium 9.1 mg/dL (7.8-10.44); Carbon Dioxide 27 mmol/L (23-31); Chloride 104 mmol/L (98-107); Estimated GFR-MDRD 63; Globulin 3.4 g/dL (2.4-3.5); Glucose 151 mg/dL (80-115); Potassium 3.8 mmol/L (3.5-5.1); Protein, Total 7.3 g/dL (5.8-8.1); Sodium 137 mmol/L (136-145)
--- NOTE | 2019-10-16 06:08 | PDOC.FM ---
- Subjective Subjective: Pt states his breathing is improving. He denies chest pain. No other complaints this morning. - Objective MAR Reviewed: Yes Vital Signs & Weight: Vital Signs (12 hours) Temp Pulse Resp Pulse Ox 10/16/19 04:00 98.6 F 89 20 89 L Weight Admit Weight 124.194 kg Weight 120.021 kg I&O: 10/14/19 10/15/19 10/16/19 06:59 06:59 06:59 Intake Total 990 960 900 Output Total 3800 2550 2000 Balance -2810 -1590 -1100 Result Diagrams: 10/16/19 04:12 10/16/19 04:12 Phys Exam - Physical Examination Constitutional: NAD HEENT: moist MMs Neck: no JVD Respiratory: no wheezing very mild basilar crackls Cardiovascular: RRR, no significant murmur Gastrointestinal: soft, non-tender, no distention, positive bowel sounds Musculoskeletal: pulses present, edema present (trace) Neurological: moves all 4 limbs Psychiatric: A&O x 3 Skin: cap refill <2 seconds Dx/Plan (1) LUPILLO (acute kidney injury) Code(s): N17.9 - ACUTE KIDNEY FAILURE, UNSPECIFIED Status: Acute (2) HIV (human immunodeficiency virus infection) Status: Chronic (3) HTN (hypertension) Code(s): I10 - ESSENTIAL (PRIMARY) HYPERTENSION Status: Acute (4) T2DM (type 2 diabetes mellitus) Status: Chronic - Plan Plan: This is a 69 yo male with a pmh of Chronic anemia, IDDM2, HTN, CAD, HLD, Cirrhosis 2/2 fatty liver, HIV Acute hypoxic respiratory failure likely 2/2 new HFpEF exacerbation -BNP 367 -Undergoing diuresis. Strict I&Os and daily weights, 1.5 L down overnight, 4.4 L down for hospital stay -Switching to PO lasix -Dr. Osborn consulted, will appreciate recommendations -Pt will likely need beta carissa and ACEi before discharge -Echo shows EF of 50-55%, LVH, and diastolic dysfunction NSTEMI type 1 -May be contributing to the new CHF -Troponins trending up:0.502, 1.276, 1.845 -Will continue monitoring for pain and repeat EKG with any changes -Dr. Osborn recommends medical management and treatment of underlying CHF exacerbation LUPILLO on CKD 2 likely 2/2 new CHF exacerbation -Diuresis and follow with BMPs -Improving while on lasix, slight bump in Cr today, switching to PO lasix Symptomatic anemia -Transfusion threshold is <8.0 due to cardiac condition -S/P 1u PRBCs, will reassess after -Will monitor respirations closely for fluid overload, pt given 40mg lasix before transfusion -Hgb 7.9 this AM, pt will likely Hemoconcentrate with diuresis. Will follow and transfuse if this drops more or pt becomes symptomatic Chronic anemia -Pt is undergoing workup with Dr. Welsh. No source at this point -MCV would suggest iron deficiency, however RDW is elevated suggesting multifocal anemia or large reticulocyte population IDDM2 -Continue home HTN -Monitor BP, no meds on home list HIV -Pt reports undetectable viral load, pending viral load and CD4 count -Continue home raltegravir and ritonavir CAD -Continue aspirin, starting atorvastatin Cirrhosis 2/2 fatty liver -Check on hep A and B vaccine
[2019-10-16 06:42] LABS: Band 1 % (5-11); Eosinophils 3 % (0-10); Hemoglobin 8.2 g/dL (14.0-18.0); Hypochromia SLIGHT = 6-15 cells (100X) (0-5/hpf); Lymphocytes 27 % (21-51); MDiff Complete? YES; Mean Corpuscular HGB CONC 30.3 g/dL (32.0-36.0); Mean Corpuscular Hemoglobin 19.9 pg (27.0-31.0); Mean Corpuscular Volume 65.8 fL (78.0-98.0); Mean Platelet Volume 5.2 fL (7.4-10.4); Microcytosis MODERATE=15-30 cells (100X) (0-5/hpf); Monocytes 10 % (0-10); Neutrophil 59 % (42-75); Platelet Count 103 thou/uL (130-400); Platelet Morphology Comment Appears Decreased; RBC Distribution Width 21.3 % (11.5-14.5); Red Blood Cell (RBC) Count 4.13 mill/uL (4.70-6.10); White Blood Cell (WBC) Count 6.1 thou/uL (4.8-10.8)
[2019-10-16] MEDS ORDERED: Furosemide 20 MG TAB PO SCH ×3 (07:00→14:00)
[2019-10-16] MEDS: Aspirin 81 mg Enteric Coated Tablet PO SCH (09:14)
[2019-10-16] MEDS: Escitalopram Oxalate 20 mg Tablet PO SCH ×2 (09:14→09:16)
[2019-10-16] MEDS: Atorvastatin Calcium 40 MG TAB PO SCH (09:14)
[2019-10-16] MEDS: Amitriptyline HCl 100 MG TAB PO SCH (09:14)
[2019-10-16] MEDS: Raltegravir Potassium 400 MG TAB PO SCH (09:14)
[2019-10-16] MEDS: hydrOXYzine Pamoate 25 mg Capsule PO SCH (09:15)
[2019-10-16] MEDS: Enoxaparin Sodium 40 MG/0.4 ML SYRINGE SC SCH (09:15)
[2019-10-16] MEDS: metFORMIN 500 MG TAB PO SCH (09:15)
[2019-10-16] MEDS: Spironolactone 25 MG TAB PO SCH (09:15)
[2019-10-16] MEDS: Gabapentin 300 MG CAP PO SCH (09:15)
[2019-10-16] MEDS: ALPRAZolam 0.5 MG TAB PO SCH (09:16)
[2019-10-16] MEDS ORDERED: Furosemide 40 MG TAB PO SCH (09:30)
[2019-10-16 10:08] VITALS: TEMP 97.8
[2019-10-16] MEDS: HumaLOG 300 UNITS/3 ML VIAL SC PRN (11:12)
--- NOTE | 2019-10-16 12:12 | PRG ---
DATE OF SERVICE: 10/16/2019 The patient was seen, evaluated, discussed, and examined with the residents by bedside. Please see Dr. Babin's note for which I agree. Really, after this heart attack and heart failure exacerbation, the patient is doing a lot better. No longer fluid overloaded. No chest pain or shortness of breath. Energy level is good and feels fine otherwise. On exam, chest is clear. Cardiovascular, regular rate and rhythm. Extremities show only trace edema and should be ready to go home today as Cardiology cleared him. He will continue same medicines that he is currently on and discussed daily weights and call if his weight increases. Follow up with Cardiology in the next week or so. He will notify us if there are any problems sooner. Job ID: [id number]
[2019-10-16 13:50] VITALS: BP 138/78
[2019-10-16 19:08] LABS: HIV-1 Quantitative, RNA PCR <20 copies/mL (.)
[2019-10-17] MEDS ORDERED: Furosemide 40 MG TAB PO SCH (09:00)
[2019-10-17 15:10] LABS: %CD4 (Helper/Inducer) 18.1 % (30.8-58.5); Absolute CD4 235 /uL (359-1519); Lymphocytes/Gated Cell Count 1.3 x10E3/uL (0.7-3.1); Total Lymphocyte 18 % (Not Estab.); WBC Total Count 6.8 x10E3/uL (3.4-10.8)
== END 2019-10-16 14:53 | disposition home or self-care (01) | DRG 280 ==
LOC: ERS 19:24 → 2NO 23:48
PROVIDERS: ADMIT Family Medicine; ATTEND Family Medicine
DX: I21.4 Non-ST elevation (NSTEMI) myocardial infarction (principal); J96.01 Acute respiratory failure with hypoxia; I50.31 Acute diastolic (congestive) heart failure; I13.0 Hypertensive heart and chronic kidney disease with heart failure and stage 1 through stage 4 chronic kidney disease, or unspecified chronic kidney disease; N17.9 Acute kidney failure, unspecified; I25.10 Atherosclerotic heart disease of native coronary artery without angina pectoris; K74.60 Unspecified cirrhosis of liver; E11.22 Type 2 diabetes mellitus with diabetic chronic kidney disease; N18.2 Chronic kidney disease, stage 2 (mild); Z66 Do not resuscitate; K75.81 Nonalcoholic steatohepatitis (NASH); Z21 Asymptomatic human immunodeficiency virus [HIV] infection status; E78.5 Hyperlipidemia, unspecified; E66.9 Obesity, unspecified; Z90.79 Acquired absence of other genital organ(s); Z90.49 Acquired absence of other specified parts of digestive tract; D64.9 Anemia, unspecified; Z79.4 Long term (current) use of insulin
CPT/HCPCS: 36415; 36416; 36430; 80053; 83036; 83880; 85007; 85027; 85048; 85610; 85730; 86361; 86850; 86900; 86901; 87536; 90471; 90670; 93005; 93306; 93798; 96372; 99285; G0009; J1650; J1940; P9016; Q0177

== ENCOUNTER 2020-04-16 09:09 | Outpatient (CLI) | payer MEDICARE ==
--- NOTE | 2020-04-16 11:06 | ULT ---
ULTRASOUND HEPATIC DOPPLER: Date: 04/16/2020 HISTORY: Cirrhosis of the liver. COMPARISON: 09/23/2019. FINDINGS: The liver demonstrates coarse and increased echogenicity without focal mass or intrahepatic ductal di latation. The patient is post cholecystectomy. The spleen is enlarged measuring 16.0 cm in length. Th e pancreas and aorta are not well visualized due to overlying bowel gas. No free fluid is seen. There is normal flow and spectral waveforms in the hepatic, portal, and splenic vasculature. The common duct measures 4.0 mm in diameter. IMPRESSION: Stable exam. No evidence of hepatic mass. POS: [facility]
== END 2020-04-16 09:10 | disposition home or self-care (01) ==
LOC: SCSULT 09:09
PROVIDERS: ATTEND Internal Medicine Gastroenterology
DX: K74.60 Unspecified cirrhosis of liver (principal); K72.90 Hepatic failure, unspecified without coma; N18.9 Chronic kidney disease, unspecified; D63.1 Anemia in chronic kidney disease; R60.9 Edema, unspecified
CPT/HCPCS: 76705

== ENCOUNTER 2020-04-19 19:40 | Inpatient (IN) | payer MEDICARE, OTHER ==
[2020-04-19] MEDS ORDERED: Dextrose 5% in Water 1,000 ML IV PRN (21:52)
[2020-04-19] MEDS ORDERED: Dextrose 50% Abboject 50 ML SYRINGE SLOW IVP PRN (21:52)
[2020-04-19] MEDS ORDERED: hydrALAZINE 20 MG/ML VIAL SLOW IVP PRN (21:56)
[2020-04-19] MEDS ORDERED: Ondansetron PF 4 MG/2 ML Vial IVP PRN (21:56)
[2020-04-19] MEDS ORDERED: Sodium Chloride 0.9% 1,000 ML IV SCH (23:07)
--- NOTE | 2020-04-19 23:58 | HP ---
TRAUMA SURGEON: Nita Vaughan MD CONSULTING PHYSICIAN: Dr. Sawant. HISTORY OF PRESENT ILLNESS: The patient is a 70-year-old male, presented to the emergency department in [place] after a mechanical fall at home. The patient has severe peripheral neuropathy and cannot feel his extremities very well. He reports this is usual for him. He denies significantly worse numbness or tingling in his upper and lower extremities. In [place], they completed x-rays and demonstrated that he had a left distal fibular fracture with joint space widening. He was transferred here for surgery tomorrow with Dr. Sawant. There was concern for fever at the outside hospital of 100.5. He received a COVID swab there and has been afebrile ever since. He has received Tylenol for pain control. He has no symptoms of COVID infection. He denies chest pain, shortness of breath, cough, nausea, vomiting, diarrhea, abdominal pain, fevers. REVIEW OF SYSTEMS: All additional 10-point review of systems negative except as indicated above. PAST MEDICAL HISTORY: Diabetes, peripheral neuropathy, HIV, LOUIS, CAD, hypertension, hyperlipidemia, CHF, AR. Last echo was done on 10/14/2019, demonstrated an EF of 50% to 55%. PAST SURGICAL HISTORY: He has had a prostate surgery in the past. SOCIAL HISTORY: The patient denies tobacco, drug, or alcohol use. He lives at home alone. His sister helps take care of him, but she is out of town at this time. MEDICATIONS: The patient is not sure of his medications. He does take Lasix. He says his sister helps with that. He goes to [facility] on [address] [facility]. We will contact his pharmacy and update his med rec. He denies anticoagulation use. ALLERGIES: NITROGLYCERIN. PHYSICAL EXAMINATION: VITAL SIGNS: Temperature 99.7, pulse 92, respirations 15, oxygen saturation 98% on room air, blood pressure 139/78. PRIMARY SURVEY: Airway intact. Adequate breath sounds bilaterally. 2+ pulses in bilateral radials, femorals, and DPs. GCS 15. Gross motor and sensation, intact. No laceration, bruising, or external bleeding. SECONDARY SURVEY: HEAD: Normocephalic and atraumatic. No gross palpable skull deformities or tenderness. C-SPINE: No step-offs or deformities, nontender. C-collar not in place. CHEST: Nontender. No crepitus. No abrasions or ecchymosis. Equal chest movement. ABDOMEN: Soft, nontender, nondistended. PELVIS: Stable to palpation. RECTAL: Deferred. GENITOURINARY: Deferred. EXTREMITIES: The patient has a splint to his left lower extremity that is clean, dry, and in place. Otherwise, no other extremity deformity noted. No abrasions or ecchymosis noted. 2+ pulses in bilateral radials, femorals, and DPs. BACK/SPINE: No step-offs or deformities. No tenderness to palpation of the thoracic or lumbar spine. No abrasions or ecchymosis noted. NEUROLOGIC: 5/5 strength in the bilateral tire changer aircraft, plantar flexion, dorsiflexion. Gross normal sensation x4 extremities. LABORATORY FINDINGS: White count 11.7, hemoglobin 12.2, hematocrit 34.1, platelets 162. INR 1.1. Sodium 132, potassium 5.5, chloride 103, bicarb 19, BUN 32, creatinine 1.48, glucose 168. Total bilirubin 0.4, AST 50, ALT 57, alkaline phosphatase 120. UA is negative for an infection. DIAGNOSTIC FINDINGS: Chest x-ray demonstrates no acute process identified. X-ray of the left ankle demonstrates fracture and possible ligamentous injury of the left fibula. ASSESSMENT: 1. Status post mechanical fall from standing. 2. Left distal fibular fracture with joint space widening. 3. Hyponatremia. 4. Hyperkalemia. 5. Acute kidney injury. PLAN: The patient will be admitted to the Trauma Service. He can have a diabetic diet now and then n.p.o. at midnight. He is to receive 1 L of normal saline for some dehydration and hyperkalemia. We will give it slowly at 70 an hour for one bag. Repeat blood work in the morning. We will ask Nursing to complete a med rec and we will restart home medications as clinically indicated. COVID test was collected today in [place], we will follow up those results. The patient will likely need placement in acute rehab facility postoperatively. This patient was discussed with Dr. Vaughan before this dictation. Job ID: [id number]
[2020-04-20] MEDS ORDERED: Sodium Chloride 0.9% 1,000 ML IV SCH (00:01)
[2020-04-20] MEDS: traMADol HCl 50 MG TAB PO PRN ×3 (00:03→12:58)
[2020-04-20] MEDS: Morphine 2 MG/ML SYRINGE SLOW IVP PRN ×2 (01:15→07:38)
[2020-04-20 01:19] VITALS: BMI 33.7
[2020-04-20 05:16] LABS: #Eosinphils 0.1 thou/uL (0.0-0.7); #Lymphocytes 1.7 thou/uL (1.20-3.40); #Monocytes 0.9 thou/uL (0.11-0.59); #Neutrophils 6.5 thou/uL (1.40-6.50); %Basophils 0.4 % (0.0-1.0); %Eosinophils 1.5 % (0.0-10.0); %Lymphocytes 18.3 % (21.0-51.0); %Monocytes 10.1 % (0.0-10.0); %Neutrophils 69.7 % (42.0-75.0); Hemoglobin 10.2 g/dL (14.0-18.0); Mean Corpuscular Hemoglobin 26.8 pg (27.0-31.0); Mean Corpuscular Volume 86.7 fL (78.0-98.0); Mean Platelet Volume 8.9 fL (7.4-10.4); Platelet Count 147 thou/uL (130-400); RBC Distribution Width 16.4 % (11.5-14.5); White Blood Cell (WBC) Count 9.3 thou/uL (4.8-10.8)
[2020-04-20 05:38] LABS: Anion Gap 13 mmol/L (10-20); BUN (Urea Nitrogen) 26 mg/dL (8.4-25.7); Calc. Creatinine Clearance 94 mL/min (70-130); Calcium 8.8 mg/dL (7.8-10.44); Carbon Dioxide 23 mmol/L (23-31); Chloride 102 mmol/L (98-107); Estimated GFR-MDRD 61; Glucose 127 mg/dL (80-115); Potassium 4.5 mmol/L (3.5-5.1); Sodium 133 mmol/L (136-145)
[2020-04-20] MEDS: Carvedilol 25 MG TAB PO SCH ×2 (07:37→17:52)
[2020-04-20] MEDS: Amitriptyline HCl 100 MG TAB PO SCH (07:37)
[2020-04-20] MEDS: Senokot S 8.6-50 MG TAB PO SCH ×2 (07:37→21:18)
[2020-04-20] MEDS: Rifaximin 550 MG TAB PO SCH ×2 (07:37→21:18)
[2020-04-20] MEDS: Atorvastatin Calcium 40 MG TAB PO SCH (07:38)
[2020-04-20] MEDS: Polyethylene Glycol 3350 17 GM Packet PO SCH (07:38)
[2020-04-20] MEDS: Escitalopram Oxalate 20 mg Tablet PO SCH (07:38)
[2020-04-20] MEDS: Raltegravir Potassium 400 MG TAB PO SCH ×2 (07:38→21:18)
[2020-04-20] MEDS ORDERED: DARUNAVIR ETHANOLATE PO SCH (09:00)
[2020-04-20] MEDS ORDERED: Famotidine/PF 20 mg/2ml Vial SLOW IVP SCH (09:00)
[2020-04-20] MEDS: Icosapent Ethyl 1 GM CAPSULE PO SCH ×2 (10:10→21:17)
[2020-04-20] MEDS: Gabapentin 300 MG CAP PO SCH (12:58)
--- NOTE | 2020-04-20 16:10 | PRG ---
DATE OF SERVICE: 04/20/2020 SUBJECTIVE: This is a 70-year-old gentleman, who had a mechanical fall at home. The patient was transferred from [facility] for further care. The patient had a temperature of 100.9, and with his history of human immunodeficiency virus, the patient was tested for COVID-19. Results were negative for COVID-19. The patient sustained a left distal fibular fracture with joint space widening. The patient is currently awake, alert, in no distress. The patient had no overnight events. The patient's pain is controlled at this time. The patient has been n.p.o. since midnight. OBJECTIVE: VITAL SIGNS: Temperature 96.7, pulse 90, respirations 18, SpO2 of 95% on room air, and blood pressure 130/70. GENERAL: Well-appearing elderly gentleman, awake, alert, no distress. HEENT: Atraumatic and normocephalic. RESPIRATORY: Equal chest rise and fall, bilateral breath sounds clear. CARDIAC: Regular rate, regular rhythm. EXTREMITIES: Moves all extremities, neurovascularly intact x4, left lower extremity in a splint. NEUROLOGIC: No focal deficits. LABORATORY DATA: WBC 9.3, RBC 3.80, hemoglobin 10.2, hematocrit 33.3, and platelets 147. Sodium 133, potassium 4.5, chloride 102, carbon dioxide 23, BUN 26, creatinine 1.18, estimated GFR 61, glucose 127, calcium 8.8, phosphorus 3.0, and magnesium 2.0. IMPRESSION: 1. Status post mechanical fall from standing. 2. Left distal fibular fracture with joint space widening. 3. Hyponatremia, likely chronic due to medications. 4. Acute kidney injury, resolved. PLAN: Continue n.p.o. status. Dr. Gipson plans to take the patient to the OR later today. Move the patient to the surgical floor now that his COVID-19 results are negative. Gentle maintenance fluids at 70 mL an hour as he is n.p.o. 1 L free water restriction for his hyponatremia and history of CHF. Continue pain regimen. PT and OT postop. A post-acute screen has been placed as the patient will likely need physical therapy. The plan was discussed with the patient and Dr. Rothman, who agrees. Job ID: [id number]
[2020-04-20] MEDS: Cyclobenzaprine 10 MG TAB PO PRN (21:17)
[2020-04-20] MEDS: Insulin Regular 300 UNITS/3 ML VIAL SC PRN (21:27)
[2020-04-21] MEDS: Gabapentin 300 MG CAP PO SCH ×2 (00:09→14:40)
--- NOTE | 2020-04-21 01:44 | CON ---
DATE OF CONSULTATION: 04/20/2020 HISTORY OF PRESENT ILLNESS: Mr. Hodge is a 70-year-old male who lives at home alone. He fell yesterday and had immediate deformity in the left ankle. He was initially seen in [facility]. X-ray showed a lateral malleolar fracture. The patient was splinted and transferred over here. The patient has minimal pain because of peripheral neuropathy. The patient was tested and was COVID negative. PAST MEDICAL HISTORY: Medical illnesses; diabetes, peripheral neuropathy, HIV, LOUIS, CAD, hypertension, hyperlipidemia, CHF, ND. PAST SURGICAL HISTORY: Prostate surgery. SOCIAL HISTORY: The patient lives at home alone. He states he has a sister that helps take care of him. He denies tobacco, drug, or alcohol use. ALLERGIES: NITROGLYCERIN. CURRENT MEDICATIONS: The patient is not sure of the medication that he takes. PHYSICAL EXAMINATION: The patient has a well-padded splint on the left lower extremity. He has decreased sensation in his toes, have good capillary refill. DIAGNOSTIC DATA: X-rays of the left ankle shows an oblique lateral malleolar fracture. There is no significant subluxation in the AP or lateral planes. IMPRESSION: 1. Lateral malleolar fracture of the left ankle. 2. Diabetes mellitus. 3. Peripheral neuropathy. 4. Human immunodeficiency virus. 5. Coronary artery disease. 6. Hypertension. 7. Hyperlipidemia. 8. Congestive heart failure. 9. Previous myocardial infarction. PLAN: At this point, I did not recommend surgery for the patient. He will be left in the splint. Plan on close followup. He was instructed that it is possible that the ankle could sublux in which case he may end up requiring surgery. I would like to re-x-ray him in my office next week. The patient needs to be nonweightbearing because he lives alone at home and will need to be nonweightbearing. He will probably need to go to rehab or retirement facility for a while until he can master a walker and be nonweightbearing. Job ID: [id number]
--- NOTE | 2020-04-21 02:27 | PRG ---
DATE OF SERVICE: 04/20/2020 SUBJECTIVE: The patient was seen this evening during rounds. He was sitting up at the edge of the bed, taking medications. Nursing reported no acute events. OBJECTIVE: VITAL SIGNS: Temperature 98.2, pulse 85, respirations 20, oxygen saturation 92% on room air, and blood pressure 121/68. GENERAL: Well-appearing elderly male, sitting up at the edge of the bed with no signs of acute distress. PULMONARY: Equal chest rise and fall. No signs of acute respiratory distress. ASSESSMENT: 1. Status post mechanical fall from standing. 2. Left distal fibular fracture with joint space widening. 3. Acute hyponatremia, improving. 4. Acute kidney injury, resolved. 5. History of diabetes, human immunodeficiency virus, nonalcoholic steatohepatitis, peripheral neuropathy, coronary artery disease, hypertension, hyperlipidemia, myocardial infarction, and congestive heart failure. PLAN: Continue current diet and pain regimen. Continue physical and occupational therapy. Restart home Lasix and spironolactone tomorrow. He is pending placement. Job ID: [id number] [facility]
[2020-04-21] MEDS: traMADol HCl 50 MG TAB PO PRN ×3 (03:45→17:57)
[2020-04-21] MEDS: Cyclobenzaprine 10 MG TAB PO PRN (05:44)
[2020-04-21] MEDS: Insulin Regular 300 UNITS/3 ML VIAL SC PRN ×4 (05:44→21:58)
[2020-04-21 07:30] LABS: Chloride 100 mmol/L (98-107); Potassium 5.2 mmol/L (3.5-5.1); Sodium 130 mmol/L (136-145)
[2020-04-21 07:31] LABS: Calcium 9.2 mg/dL (7.8-10.44); Glucose 141 mg/dL (80-115)
[2020-04-21 07:33] LABS: Anion Gap 12 mmol/L (10-20); Carbon Dioxide 23 mmol/L (23-31)
[2020-04-21 07:35] LABS: Calc. Creatinine Clearance 87 mL/min (70-130); Estimated GFR-MDRD 56
[2020-04-21 07:36] LABS: BUN (Urea Nitrogen) 27 mg/dL (8.4-25.7)
[2020-04-21 07:37] LABS: Magnesium 2.4 mg/dL (1.6-2.6)
[2020-04-21 07:40] LABS: Phosphorus 3.8 mg/dL (2.3-4.7)
[2020-04-21] MEDS: Rifaximin 550 MG TAB PO SCH ×2 (09:17→21:55)
[2020-04-21] MEDS: Atorvastatin Calcium 40 MG TAB PO SCH (09:17)
[2020-04-21] MEDS: Senokot S 8.6-50 MG TAB PO SCH ×2 (09:17→21:55)
[2020-04-21] MEDS: Amitriptyline HCl 100 MG TAB PO SCH (09:17)
[2020-04-21] MEDS: Raltegravir Potassium 400 MG TAB PO SCH ×2 (09:17→21:55)
[2020-04-21] MEDS: Carvedilol 25 MG TAB PO SCH ×2 (09:17→16:00)
[2020-04-21] MEDS: Escitalopram Oxalate 20 mg Tablet PO SCH (09:18)
[2020-04-21] MEDS: Icosapent Ethyl 1 GM CAPSULE PO SCH ×2 (09:18→21:55)
[2020-04-21] MEDS: Spironolactone 25 MG TAB PO SCH (09:19)
[2020-04-21] MEDS: Furosemide 40 MG TAB PO SCH (09:19)
[2020-04-21] MEDS: Polyethylene Glycol 3350 17 GM Packet PO SCH (09:19)
--- NOTE | 2020-04-21 16:44 | PRG ---
DATE OF SERVICE: 04/21/2020 This is Shiloh Villafana NP dictating a report for Jozef Rothman DO. SUBJECTIVE: The patient was seen during morning rounds. Awake and alert, in no distress. The patient had no overnight events. The patient's pain is controlled at this time. The patient was evaluated by Orthopedic Surgery and recommends nonoperative management of his left distal fibula fracture. The patient is currently in a splint in his left lower extremity. The patient has not worked with Physical Therapy yet today. OBJECTIVE: VITAL SIGNS: Temperature 97.9, pulse 84, respirations 16, SpO2 of 94% on room air, blood pressure 129/74. GENERAL: A well-appearing elderly male, sitting up in hospital bed, in no acute distress. PULMONARY: Equal chest rise and fall, respirations are even and nonlabored. EXTREMITIES: Moves all extremities, neurovascularly intact x4 and splint clean, dry, and intact to left lower extremity. LABORATORY DATA: Sodium 130, potassium 5.2, BUN 27, creatinine 1.28, estimated GFR 56, glucose 141, and calcium 9.2. Phosphorus 3.8. Magnesium 2.4. IMPRESSION: 1. Status post mechanical fall from standing. 2. Left distal fibular fracture with joint space widening, nonoperative management. 3. Acute hyponatremia. 4. History of diabetes. 5. Human immuno deficiency virus. 6. Nonalcoholic fatty liver. 7. Peripheral neuropathy. 8. Coronary artery disease. 9. Hypertension. 10. Hyperlipidemia. 11. Myocardial infarction. 12. Congestive heart failure. PLAN: Continue current diet and pain regimen. Continue physical and occupational therapy. Splint to the left lower extremity and nonweightbearing. Continue pain regimen. Continue free water restriction for hyponatremia and congestive heart failure. The patient is pending placement to rehab as he will need physical and occupational therapy. The plan was discussed with the patient who agrees. The patient was examined by Dr. Rothman during morning rounds. Job ID: [id number]
[2020-04-21] MEDS: Enoxaparin Sodium 30 MG/0.3 ML SYRINGE SC SCH (21:55)
[2020-04-22] MEDS: Gabapentin 300 MG CAP PO SCH ×2 (00:07→14:17)
[2020-04-22] MEDS: traMADol HCl 50 MG TAB PO PRN ×3 (00:07→18:06)
--- NOTE | 2020-04-22 03:12 | PRG ---
DATE OF SERVICE: 04/21/2020 SUBJECTIVE: The patient was seen this evening during rounds. He was resting comfortably in bed and asleep with no signs of acute distress. Nursing reported no acute events. OBJECTIVE: VITAL SIGNS: Temperature 98.1, pulse 81, respirations 16, oxygen saturation 91% on room air, and blood pressure 128/77. ASSESSMENT: 1. Status post mechanical fall at home. 2. Left distal fibular fracture with joint space narrowing. 3. Hyponatremia, worse. 4. Acute kidney injury, resolved. 5. History of diabetes, human immunodeficiency virus, nonalcoholic steatohepatitis, peripheral neuropathy, coronary artery disease, hypertension, hyperlipidemia, myocardial infarction, and congestive heart failure. PLAN: Continue current diet and pain regimen. Continue free water restriction to 1 liter a day. The patient is pending placement at rehab facility. Job ID: [id number]
[2020-04-22 06:11] LABS: Anion Gap 13 mmol/L (10-20); BUN (Urea Nitrogen) 31 mg/dL (8.4-25.7); Calc. Creatinine Clearance 79 mL/min (70-130); Calcium 8.9 mg/dL (7.8-10.44); Carbon Dioxide 23 mmol/L (23-31); Chloride 101 mmol/L (98-107); Estimated GFR-MDRD 50; Glucose 161 mg/dL (80-115); Magnesium 2.3 mg/dL (1.6-2.6); Phosphorus 3.6 mg/dL (2.3-4.7); Potassium 4.5 mmol/L (3.5-5.1); Sodium 132 mmol/L (136-145)
[2020-04-22] MEDS: Insulin Regular 300 UNITS/3 ML VIAL SC PRN ×3 (06:33→17:33)
[2020-04-22] MEDS: Senokot S 8.6-50 MG TAB PO SCH ×2 (08:22→20:42)
[2020-04-22] MEDS: Furosemide 40 MG TAB PO SCH (08:23)
[2020-04-22] MEDS: Aspirin 81 mg Enteric Coated Tablet PO SCH (08:23)
[2020-04-22] MEDS: Rifaximin 550 MG TAB PO SCH ×2 (08:23→20:41)
[2020-04-22] MEDS: Escitalopram Oxalate 20 mg Tablet PO SCH (08:23)
[2020-04-22] MEDS: Atorvastatin Calcium 40 MG TAB PO SCH (08:23)
[2020-04-22] MEDS: Raltegravir Potassium 400 MG TAB PO SCH ×2 (08:23→20:42)
[2020-04-22] MEDS: Amitriptyline HCl 100 MG TAB PO SCH (08:23)
[2020-04-22] MEDS: Spironolactone 25 MG TAB PO SCH (08:23)
[2020-04-22] MEDS: Carvedilol 25 MG TAB PO SCH ×2 (08:23→17:33)
[2020-04-22] MEDS: Polyethylene Glycol 3350 17 GM Packet PO SCH (08:24)
[2020-04-22] MEDS: Enoxaparin Sodium 30 MG/0.3 ML SYRINGE SC SCH ×2 (08:25→20:41)
[2020-04-22] MEDS: Icosapent Ethyl 1 GM CAPSULE PO SCH ×2 (10:15→20:41)
[2020-04-22] MEDS: Cyclobenzaprine 10 MG TAB PO PRN (20:41)
--- NOTE | 2020-04-22 21:23 | PRG ---
DATE OF SERVICE: 04/22/2020 SUBJECTIVE: The patient remains on the surgical floor, awake and alert, in no distress. The patient had no overnight events. The patient reports that he slept very well last night. The patient did have a bowel movement earlier today. The patient's pain has been well controlled. The patient voices no complaints or concerns. OBJECTIVE: VITAL SIGNS: Temperature 97.9, pulse 79, respirations 16, SpO2 of 94% on room air, and blood pressure 137/80. GENERAL: Well-appearing elderly male, awake and alert, in no distress. RESPIRATORY: Equal chest rise and fall. Respirations are even and nonlabored. ABDOMEN: Abdomen is soft, obese, and nontender. EXTREMITIES: Moves all extremities. Left lower extremity in a splint. Neurovascularly intact x4. ASSESSMENT: 1. Status post mechanical fall at home. 2. Left distal fibular fracture with joint space narrowing, nonoperative management. 3. Hyponatremia. 4. Acute kidney injury, resolved. 5. History of diabetes, human immunodeficiency virus, nonalcoholic steatohepatitis, peripheral , coronary artery disease, hypertension, hyperlipidemia, myocardial infarction, and congestive heart failure. PLAN: Continue current diet and pain regimen. Continue free water restriction to 1 liter per day. Increase physical and occupational therapy. The patient is pending placement at inpatient rehab. The plan was discussed with the patient, who agrees. The patient was examined by Dr. Rothman during morning rounds. Job ID: [id number]
[2020-04-23] MEDS: Gabapentin 300 MG CAP PO SCH ×2 (00:53→15:36)
[2020-04-23] MEDS: traMADol HCl 50 MG TAB PO PRN ×2 (00:54→20:41)
[2020-04-23] MEDS: Cyclobenzaprine 10 MG TAB PO PRN ×2 (03:32→22:31)
--- NOTE | 2020-04-23 03:40 | PRG ---
DATE OF SERVICE: 04/22/2020 SUBJECTIVE: The patient was seen this evening during rounds. He was lying in bed sleeping with no signs of acute distress. Nursing reported no acute events. OBJECTIVE: VITAL SIGNS: Temperature 98.2, pulse 79, respirations 18, oxygen saturation 94% on room air, and blood pressure 125/78. GENERAL: Well-appearing elderly male, lying in bed, asleep, but no signs of acute distress. ASSESSMENT: 1. Status post mechanical fall. 2. Left distal fibular fracture with joint space narrowing, nonoperative. 3. Hyponatremia, improving. 4. Acute kidney injury, stable. 5. History of diabetes, human immunodeficiency virus, nonalcoholic steatohepatitis, peripheral neuropathy, coronary artery disease, hypertension, hyperlipidemia, myocardial infarction, and congestive heart failure. PLAN: Continue current diet and pain regimen. Continue free water restriction. Continue all home medications. The patient is pending placement at acute rehab facility. Job ID: [id number]
[2020-04-23 05:56] LABS: Anion Gap 14 mmol/L (10-20); BUN (Urea Nitrogen) 33 mg/dL (8.4-25.7); Calc. Creatinine Clearance 73 mL/min (70-130); Calcium 9.2 mg/dL (7.8-10.44); Carbon Dioxide 23 mmol/L (23-31); Chloride 99 mmol/L (98-107); Estimated GFR-MDRD 46; Glucose 148 mg/dL (80-115); Magnesium 2.3 mg/dL (1.6-2.6); Phosphorus 3.5 mg/dL (2.3-4.7); Potassium 4.5 mmol/L (3.5-5.1); Sodium 131 mmol/L (136-145)
[2020-04-23 06:01] LABS: #Eosinphils 0.1 thou/uL (0.0-0.7); #Lymphocytes 1.6 thou/uL (1.20-3.40); #Monocytes 0.6 thou/uL (0.11-0.59); %Basophils 0.6 % (0.0-1.0); %Lymphocytes 21.5 % (21.0-51.0); %Monocytes 7.7 % (0.0-10.0); %Neutrophils 68.3 % (42.0-75.0); Hemoglobin 10.2 g/dL (14.0-18.0); Mean Corpuscular HGB CONC 32.3 g/dL (32.0-36.0); Mean Corpuscular Hemoglobin 27.6 pg (27.0-31.0); Mean Corpuscular Volume 85.5 fL (78.0-98.0); Mean Platelet Volume 8.7 fL (7.4-10.4); Platelet Count 154 thou/uL (130-400); RBC Distribution Width 16.3 % (11.5-14.5); Red Blood Cell (RBC) Count 3.69 mill/uL (4.70-6.10); White Blood Cell (WBC) Count 7.3 thou/uL (4.8-10.8)
[2020-04-23] MEDS: Polyethylene Glycol 3350 17 GM Packet PO SCH (08:57)
[2020-04-23] MEDS: Enoxaparin Sodium 30 MG/0.3 ML SYRINGE SC SCH ×2 (08:57→20:44)
[2020-04-23] MEDS: Senokot S 8.6-50 MG TAB PO SCH ×2 (08:58→20:41)
[2020-04-23] MEDS: Atorvastatin Calcium 40 MG TAB PO SCH (08:58)
[2020-04-23] MEDS: Spironolactone 25 MG TAB PO SCH (08:58)
[2020-04-23] MEDS: Furosemide 40 MG TAB PO SCH (08:58)
[2020-04-23] MEDS: Escitalopram Oxalate 20 mg Tablet PO SCH (08:58)
[2020-04-23] MEDS: Carvedilol 25 MG TAB PO SCH ×2 (08:58→16:48)
[2020-04-23] MEDS: Rifaximin 550 MG TAB PO SCH ×2 (08:58→20:41)
[2020-04-23] MEDS: Amitriptyline HCl 100 MG TAB PO SCH (08:58)
[2020-04-23] MEDS: Icosapent Ethyl 1 GM CAPSULE PO SCH ×2 (08:58→20:40)
[2020-04-23] MEDS: Raltegravir Potassium 400 MG TAB PO SCH ×2 (08:58→20:41)
[2020-04-23] MEDS: Aspirin 81 mg Enteric Coated Tablet PO SCH (08:58)
--- NOTE | 2020-04-23 16:15 | PRG ---
DATE OF SERVICE: 04/23/2020 SUBJECTIVE: The patient is currently on the surgical floor. He is status post ground level fall, in which he sustained a left distal fibular fracture with joint space widening. He was evaluated by Orthopedics and felt this would be best treated nonoperatively. He is currently tolerating a diet. His pain is controlled and he has begun working with Physical and Occupational Therapy. He is currently awaiting placement likely to the swing bed in [place] that is where he lives. PHYSICAL EXAMINATION: VITAL SIGNS: Temperature is 97.5, heart rate 76, blood pressure 132/80, respirations 20, oxygen saturation 94% on room air. GENERAL: The patient is resting comfortably in bed. He is awake. [place] Coma Scale is 14, -1 for eye opening as he was asleep when I first came in. RESPIRATIONS: Clear bilaterally. HEART: Regular rate and rhythm. ABDOMEN: Soft, nontender with active bowel sounds. EXTREMITIES: Neurovascularly intact x4. Left lower extremity has a clean, dry, and intact posterior splint in place. LABORATORY FINDINGS: White blood cell count 7.3, hemoglobin 10.2, hematocrit 31.6, platelets 154. Sodium 131, potassium 4.5, chloride 99, CO2 of 23, BUN 32, creatinine 1.52, glucose 148, magnesium 2.3, phosphorus 3.5. There are no radiographs to review this morning. ASSESSMENT: 1. Status post mechanical fall. 2. Left distal fibular fracture with joint space widening, being treated nonoperatively. 3. Hyponatremia, stable. 4. Acute kidney injury, stable. 5. History of diabetes, HIV, nonalcoholic steatohepatitis. 6. Peripheral neuropathy. 7. Coronary artery disease. 8. History of hypertension, hyperlipidemia, myocardial infarction, and congestive heart failure. PLAN: Plan will be to continue current supportive measures. We will continue free water restriction. Add sodium to his diet. Resume all home medications and await placement. Job ID: [id number]
[2020-04-23] MEDS: Insulin Regular 300 UNITS/3 ML VIAL SC PRN ×2 (16:47→20:42)
[2020-04-24] MEDS ORDERED: Insulin Regular 300 UNITS/3 ML VIAL SC PRN (02:31)
[2020-04-24] MEDS: Gabapentin 300 MG CAP PO SCH ×2 (02:33→14:26)
--- NOTE | 2020-04-24 03:35 | PRG ---
DATE OF SERVICE: 04/23/2020 SUBJECTIVE: The patient was seen this evening during rounds. He was lying in bed, resting comfortably, and asleep with no signs of acute distress. Nursing reported no acute events. OBJECTIVE: VITAL SIGNS: Temperature 98.3, pulse 80, respirations 16, oxygen saturation 95% on room air, and blood pressure 114/76. ASSESSMENT: 1. Status post mechanical fall. 2. Left distal fibular fracture with joint space widening. 3. Acute kidney injury, slightly worsened. 4. Uncontrolled glucose. 5. History of diabetes, human immunodeficiency virus, nonalcoholic steatohepatitis, neuropathy, coronary artery disease, hypertension, hyperlipidemia, myocardial infarction, and congestive heart failure. PLAN: Continue current diet and pain regimen. Increase to moderate insulin sliding scale. The patient encouraged to drink slightly more. We will also hold his Lasix one time tomorrow and repeat blood work in the morning to evaluate his kidney function. Job ID: [id number]
[2020-04-24 05:50] LABS: Anion Gap 14 mmol/L (10-20); BUN (Urea Nitrogen) 30 mg/dL (8.4-25.7); Calc. Creatinine Clearance 84 mL/min (70-130); Calcium 9.3 mg/dL (7.8-10.44); Carbon Dioxide 23 mmol/L (23-31); Chloride 98 mmol/L (98-107); Estimated GFR-MDRD 54; Glucose 148 mg/dL (80-115); Magnesium 2.2 mg/dL (1.6-2.6); Phosphorus 3.3 mg/dL (2.3-4.7); Potassium 4.5 mmol/L (3.5-5.1); Sodium 130 mmol/L (136-145)
[2020-04-24] MEDS: Insulin Regular 300 UNITS/3 ML VIAL SC PRN (06:20)
[2020-04-24] MEDS: Atorvastatin Calcium 40 MG TAB PO SCH (08:18)
[2020-04-24] MEDS: Spironolactone 25 MG TAB PO SCH (08:18)
[2020-04-24] MEDS: Rifaximin 550 MG TAB PO SCH (08:18)
[2020-04-24] MEDS: Enoxaparin Sodium 30 MG/0.3 ML SYRINGE SC SCH (08:18)
[2020-04-24] MEDS: Icosapent Ethyl 1 GM CAPSULE PO SCH (08:18)
[2020-04-24] MEDS: Aspirin 81 mg Enteric Coated Tablet PO SCH (08:18)
[2020-04-24] MEDS: Raltegravir Potassium 400 MG TAB PO SCH (08:18)
[2020-04-24] MEDS: Amitriptyline HCl 100 MG TAB PO SCH (08:18)
[2020-04-24] MEDS: Escitalopram Oxalate 20 mg Tablet PO SCH (08:18)
[2020-04-24] MEDS: Polyethylene Glycol 3350 17 GM Packet PO SCH (08:18)
[2020-04-24] MEDS: Carvedilol 25 MG TAB PO SCH ×2 (08:19→17:54)
[2020-04-24] MEDS: Senokot S 8.6-50 MG TAB PO SCH (08:19)
[2020-04-24] MEDS: traMADol HCl 50 MG TAB PO PRN (14:26)
[2020-04-24] MEDS: Cyclobenzaprine 10 MG TAB PO PRN (15:04)
[2020-04-24 18:34] VITALS: BP 170/93; TEMP 98.1
== END 2020-04-24 18:35 | disposition swing bed (61) | DRG 563 ==
LOC: ERS 19:40 → 2SW 22:00 → SURG A 04-20 14:09
PROVIDERS: ADMIT Surgery; ATTEND Surgery
DX: S82.832A Other fracture of upper and lower end of left fibula, initial encounter for closed fracture (principal); E87.1 Hypo-osmolality and hyponatremia; N17.9 Acute kidney failure, unspecified; Z20.828 Contact with and (suspected) exposure to other viral communicable diseases; W18.30XA Fall on same level, unspecified, initial encounter; K21.9 Gastro-esophageal reflux disease without esophagitis; Z21 Asymptomatic human immunodeficiency virus [HIV] infection status; E78.00 Pure hypercholesterolemia, unspecified; E78.5 Hyperlipidemia, unspecified; F41.9 Anxiety disorder, unspecified; I25.10 Atherosclerotic heart disease of native coronary artery without angina pectoris; I11.0 Hypertensive heart disease with heart failure; I50.9 Heart failure, unspecified; K75.81 Nonalcoholic steatohepatitis (NASH); E11.65 Type 2 diabetes mellitus with hyperglycemia; E87.5 Hyperkalemia; E11.42 Type 2 diabetes mellitus with diabetic polyneuropathy; Z90.49 Acquired absence of other specified parts of digestive tract; Z87.891 Personal history of nicotine dependence; Z88.8 Allergy status to other drugs, medicaments and biological substances; I25.2 Old myocardial infarction
CPT/HCPCS: 36415; 36416; 76705; 80048; 82947; 83735; 84100; 85025; 99284; G0390; J1650; J1815; J2270

== ENCOUNTER 2020-05-23 11:38 | Day surgery (SDC) | payer MEDICARE ==
[2020-05-22 11:27] VITALS: BMI 33.7
[~2020-05-23 11:38] MED LIST: Bupivacaine HCl 0.5%/Epinephrine 1:200,000/PF 30 ml Vial ONE; Dexamethasone 20 MG/5 ML VIAL ONE; Lidocaine 1% PF 5 ML VIAL ONE; Ondansetron PF 4 MG/2 ML Vial ONE; PROPOFOL 200 MG/20 ML VIAL ONE
[2020-05-23] MEDS ORDERED: Midazolam HCl 2 mg/2 ml Vial ONE (13:38)
[2020-05-23] MEDS ORDERED: Fentanyl 100 MCG/2 ML VIAL ONE ×2 (13:38→14:40)
[2020-05-23] MEDS ORDERED: Dexamethasone 4 mg/ml Vial ONE (13:38)
[2020-05-23] MEDS ORDERED: EPINEPHrine 1 MG/ML AMP ONE (13:40)
[2020-05-23] MEDS ORDERED: Neomycin-Polymyxin 1 ML AMP ONE ×2 (14:45→14:52)
--- NOTE | 2020-05-23 16:33 | RAD ---
Intraoperative C-arm evaluation of the left ankle (3 total images submitted) INDICATION: History of left ankle fracture; open reduction internal fixation Comparison prior exam dated April 19, 2020 FINDINGS: Since the comparison examination there is been interval open reduction internal fixation of the lateral malleolus fracture. Fracture alignment is near anatomic. Instrumentation projects in the expected position without gross evidence of complication. Total fluoroscopic time is 15 seconds. IMPRESSION: ORIF of lateral malleolus fracture seen on the comparison exam.
--- NOTE | 2020-05-23 17:14 | OP ---
DATE OF PROCEDURE: 05/23/2020 PREOPERATIVE DIAGNOSES: Fracture of the lateral malleolus and disruption of the deltoid ligament with lateral subluxation of the left ankle. POSTOPERATIVE DIAGNOSES: Fracture of the lateral malleolus and disruption of the deltoid ligament with lateral subluxation of the left ankle. PROCEDURES PERFORMED: Open reduction and internal fixation of the lateral malleolus and repair of the deltoid ligament with reduction of the left ankle. ANESTHESIA: General. DESCRIPTION OF PROCEDURE: The patient was given preoperative IV antibiotics, taken to the operating room, placed in supine position. Satisfactory general anesthesia was performed. The left lower extremity was sterilely prepped and draped in usual fashion. After exsanguination, tourniquet was raised to 250 mmHg. A longitudinal incision was made over the lateral aspect of the ankle over the distal fibula. Blunt and sharp dissection was made down to the distal fibula. The oblique fracture was identified and after some callus that had formed was removed as well as some scar tissue, I was able to reduce the fracture, and then internal fixation was provided using a 5-hole [employer] distal fibular plate. Two of the 3.5 cortical screws were placed into the shaft and then five 2.7 locking screws were placed distally along with three additional 2.7 locking screws placed proximally into the shaft. This was all performed under fluoroscopic visualization and showed anatomic reduction of the distal fibular fracture with proper placement of the plate and screws. The medial aspect of the ankle was opened and the deltoid ligament was noted to be completely disrupted, scarred down. It was removed from the medial aspect of the ankle joint. The scar tissue that had formed in the ankle was debrided with a curette and rongeur, and then initially attempt was made to repair the deltoid ligament back to the medial aspect of the talus using an Arthrex metal anchor, but on attempts of repairing the ligament down to the bone, the bone was not strong enough to hold the anchor and it pulled out. Therefore, the #2 FiberWire suture was used to repair the remaining portion of the tendon on the talus to the rest of the deltoid ligament, and this provided good repair of the deltoid ligament and good position of the ankle joint. Both wounds were then copiously irrigated with antibiotic solution. They were closed using 0 Vicryl for the periosteum and fascia over the lateral plate and screws. The fat and subcutaneous tissue were closed with 0 Vicryl, and the skin was closed with skin santosh. Sterile dressing was applied along with a boot. Tourniquet was released. The patient was awakened, extubated, and transferred to recovery room in stable condition. ESTIMATED BLOOD LOSS: Minimal. COMPLICATIONS: None. TOURNIQUET TIME: 54 minutes. Job ID: [id number]
[2020-05-23] MEDS ORDERED: hydrALAZINE 20 MG/ML VIAL ONE (17:21)
[2020-05-23] MEDS ORDERED: Labetalol HCl 100 MG/20 ML VIAL ONE (18:10)
== END 2020-05-23 22:03 ==
LOC: SDC 11:38
PROVIDERS: ATTEND Orthopaedic Surgery
PROC: 0QSK04Z Reposition Left Fibula with Internal Fixation Device, Open Approach (ICD-10-PCS; principal; 2020-05-23)
DX: S82.62XA Displaced fracture of lateral malleolus of left fibula, initial encounter for closed fracture (principal); K74.60 Unspecified cirrhosis of liver; F41.9 Anxiety disorder, unspecified; F32.9 Major depressive disorder, single episode, unspecified; Z79.4 Long term (current) use of insulin; Z79.82 Long term (current) use of aspirin; Z79.899 Other long term (current) drug therapy; Z88.8 Allergy status to other drugs, medicaments and biological substances
CPT/HCPCS: 27792; 73610; 76000; 82962; C1713; 36416; J0171; J0360; J0670; J0690; J1100; J2001; J2250; J2405; J2704; J3010

== ENCOUNTER 2020-09-19 12:29 | Outpatient (CLI) | payer MEDICARE ==
--- NOTE | 2020-09-19 13:54 | ULT ---
HEPATIC DOPPLER ULTRASOUND: 09/19/20 COMPARISON: 04/16/20 HISTORY: Cirrhosis. TECHNIQUE: Multiplanar webber scale sonographic imaging of the upper abdomen obtained. The hepatic and splenic vas culature is assessed with Doppler interrogation including color flow and spectral analysis. FINDINGS: The imaged IVC and aorta appear grossly unremarkable as does the imaged pancreas. The distal body and the tail of the pancreas are obscured by bowel gas. The hepatic parenchyma is heterogeneous and echogenic and demonstrates a peripheral irregular contour , consistent with the patient's history of cirrhosis. The left hepatic vein and portal vein are paten t and demonstrate appropriate waveforms. The main portal vein is patent and demonstrates normal hepatopetal flow. Right portal vein, right hep atic vein, and middle hepatic vein are patent and demonstrate appropriate waveforms. Hepatic artery i s patent and demonstrates an appropriate arterial waveform. The common bile duct measures 5 mm, within normal limits. The gallbladder is surgically absent. The spleen is enlarged measuring 15.6 x 6.6 cm. Splenic artery and splenic vein are patent and demonstrate appropriate arterial and venous waveforms respectively. IMPRESSION: Cirrhotic configuration of the liver. Enlarged spleen suggesting portal hypertension. Hepatic and spl enic vasculature is patent. POS: AH
== END 2020-09-19 12:30 | disposition home or self-care (01) ==
LOC: SCSULT 12:29
PROVIDERS: ATTEND Internal Medicine Gastroenterology
DX: K74.60 Unspecified cirrhosis of liver (principal); K72.90 Hepatic failure, unspecified without coma; D50.9 Iron deficiency anemia, unspecified; R16.1 Splenomegaly, not elsewhere classified
CPT/HCPCS: 76705